=== PATIENT | male | born 1955 | race Caucasian/White ===

== ENCOUNTER 2021-02-09 08:03 | Emergency (ER) | payer MEDICARE ==
--- NOTE | 2021-02-09 08:03 | NUR ---
Pt stated he saw his pmd yesterday who recommended he get an MRI of his knee but he will have to wait for auth from his insurance. Pt stated he did not want to wait for the auth from his insurance and would like an MRI here today. Pt asked if we had an MRI at this facility, when I told him we did not, he decided to leave. Pt ambulatory out of ER with steady gait using a cane.
== END 2021-02-09 08:23 | disposition left against medical advice (07) ==
LOC: ER 08:03
DX: Z53.21 Procedure and treatment not carried out due to patient leaving prior to being seen by health care provider (principal)